=== PATIENT | male | born 1980 | race Two or more races ===

== ENCOUNTER 2023-11-25 12:06 | Inpatient (IN) | payer MEDICARE ==
[2023-11-25 13:46] VITALS: BMI 28.3
[2023-11-25] MEDS ORDERED: ACETAMINOPHEN 325 MG TABLET (FP) PO PRN (15:16)
[2023-11-25] MEDS ORDERED: ONDANSETRON *ODT* 4 MG TABLET SL PRN (15:16)
[2023-11-25] MEDS ORDERED: BENZONATATE 200 MG CAPSULE PO PRN (15:16)
[2023-11-25] MEDS ORDERED: guaiFENesin 600 MG TABLET.ER (FP) PO PRN (15:16)
[2023-11-25] MEDS ORDERED: POLYETHYLENE GLYCOL (HEALTHYLAX) 3350 17 GM PACKET PO PRN (15:16)
[2023-11-25] MEDS ORDERED: IBUPROFEN 400 MG TABLET (FP) PO PRN (15:16)
[2023-11-25] MEDS ORDERED: NICOTINE POLACRILEX 2 MG LOZENGE BC PRN (15:16)
[2023-11-25] MEDS ORDERED: NALOXONE HCL 0.4 MG/ML VIAL IM PRN (15:16)
[2023-11-25] MEDS ORDERED: NICOTINE POLACRILEX 2 MG GUM BUC PRN (15:16)
[2023-11-25] MEDS ORDERED: BENZOCAINE/MENTHOL (CHLORASEPTIC ) LOZENGE MM PRN (15:16)
[2023-11-25] MEDS ORDERED: MAGNESIUM HYDROX 2400MG/30ML ORAL SUSPENSION 30 ML CUP PO PRN (15:16)
[2023-11-25] MEDS ORDERED: NALOXONE HCL (KLOXXADO) 8 MG SPRAY NS PRN (15:16)
[2023-11-25] MEDS ORDERED: methaDONE HCL 10 MG TABLET (FOR DETOX USE ONLY) ONE (16:17)
[2023-11-25] MEDS: methaDONE HCL 10 MG TABLET PO ONE (16:22)
[2023-11-25] MEDS: cloNIDine HCL 0.1 MG TABLET PO SCH (17:51)
[2023-11-25] MEDS: METHOCARBAMOL 500 MG TABLET PO PRN (17:52)
[2023-11-25] MEDS: THIAMINE 100 MG TABLET PO SCH (22:11)
[2023-11-25] MEDS: MELATONIN 5 MG TABLETS PO SCH (22:11)
[2023-11-25] MEDS: methaDONE HCL 10 MG TABLET PO PRN (22:12)
[2023-11-26] MEDS: methaDONE 40 MG, methaDONE 10 MG PO ONE (09:50)
[2023-11-26] MEDS: PRENATAL VITAMINS W/ FOLIC ACID TABLET (FP) PO SCH (09:50)
[2023-11-26] MEDS: hydrOXYzine PAMOATE 25 MG CAPSULE (FP) PO PRN (09:50)
[2023-11-26] MEDS: NICOTINE 21 MG/24 HOURS TOPICAL PATCH TD SCH (09:51)
[2023-11-26 13:42] LABS: HEMATOCRIT 40.3 % (35.4-49); HEMOGLOBIN 13.6 GM/dL (11.7-16.9); MCH 30.6 pg (25.7-33.7); MCHC 33.8 g/dl (32.0-35.9); MEAN CELL VOLUME 90.6 fl (80-96); MEAN PLT VOLUME 9.2 fl (7.5-11.1); PLATELET COUNT 217 10^3/uL (134-434); RBC 4.45 M/mm3 (4.00-5.60); RDW 14.9 % (11.9-15.9); WHITE BLOOD COUNT 6.4 K/mm3 (4.0-10.0)
[2023-11-26 13:44] LABS: CHLORIDE 108 mmol/L (98-107); POTASSIUM 4.2 mmol/L (3.5-5.1); SODIUM 139 mmol/L (136-145)
[2023-11-26 13:47] LABS: CALCIUM 8.5 mg/dL (8.5-10.1)
[2023-11-26 13:48] LABS: ANION GAP 3 mmol/L (4-13); BLOOD UREA NITROGEN 8.5 mg/dL (7-18); CO2 28 mmol/L (21-32); GLUCOSE,RANDOM 103 mg/dL (74-106)
[2023-11-26 13:51] LABS: CREATININE 0.5 mg/dL (0.55-1.3); SGOT/AST 27 U/L (15-37); SGPT/ALT 31 U/L (13-61)
[2023-11-26 13:53] LABS: TOT PROT 6.7 g/dl (6.4-8.2)
[2023-11-26 13:54] LABS: ALK PHOS 97 U/L (45-117)
[2023-11-27] MEDS ORDERED: cloNIDine HCL 0.1 MG TABLET PO PRN
[2023-11-27] MEDS: methaDONE 40 MG, methaDONE 20 MG PO ONE (09:28)
[2023-11-28] MEDS: methaDONE 40 MG, methaDONE 30 MG PO ONE (09:47)
[2023-11-29] MEDS: methaDONE HCL 40 MG DISPERSABLE TABLET PO ONE (09:18)
[2023-11-29] MEDS: IBUPROFEN 600 MG TABLET (FP) PO PRN (15:09)
[2023-11-29] MEDS: MIRTAZAPINE 15 MG TABLET (FP) PO SCH (21:31)
[2023-11-30] MEDS: MAG HYDROX/AL HYDROX/SIMETH 30 ML UNIT-DOSE CUP PO PRN (00:52)
[2023-11-30] MEDS: methaDONE 80 MG, methaDONE 10 MG PO ONE (09:05)
[2023-11-30] MEDS: BISMUTH SUBSALICYLATE 524 MG/30 ML PO PRN (09:07)
[2023-11-30] MEDS: DICYCLOMINE HCL 10 MG CAPSULE PO PRN (19:44)
[2023-12-01] MEDS: LOPERAMIDE HCL 2 MG CAPSULE PO PRN (03:00)
[2023-12-01] MEDS: NICOTINE 21 MG/24 HOURS TOPICAL PATCH TD SCH (06:10)
[2023-12-01] MEDS: methaDONE 80 MG, methaDONE 10 MG PO SCH (06:11)
[2023-12-01 09:29] VITALS: BP 148/75; PULSE 84; RESP 18; TEMP 96.8
== END 2023-12-01 14:16 | disposition other institution (70) | DRG 897 ==
LOC: YASAS 12:06 → Y6N 16:05
PROVIDERS: ADMIT Allergy & Immunology; ATTEND Surgery
PROC: HZ2ZZZZ Detoxification Services for Substance Abuse Treatment (ICD-10-PCS; principal; 2023-11-25)
DX: F11.23 Opioid dependence with withdrawal (principal); F14.20 Cocaine dependence, uncomplicated; F12.20 Cannabis dependence, uncomplicated; F17.213 Nicotine dependence, cigarettes, with withdrawal; F19.24 Other psychoactive substance dependence with psychoactive substance-induced mood disorder; F32.A Depression, unspecified; B18.2 Chronic viral hepatitis C; Z86.59 Personal history of other mental and behavioral disorders
CPT/HCPCS: 36415; 80053; 80305; 80307; 85027; 86780; 87522; 87811; 93005; 93010

== ENCOUNTER 2023-12-01 14:13 | Inpatient (IN) | payer MEDICARE, OTHER ==
[2023-12-01] MEDS ORDERED: NICOTINE POLACRILEX 4 MG GUM BUC PRN (15:36)
[2023-12-01] MEDS ORDERED: guaiFENesin 600 MG TABLET.ER (FP) PO PRN (15:36)
[2023-12-01] MEDS ORDERED: MAGNESIUM HYDROX 2400MG/30ML ORAL SUSPENSION 30 ML CUP PO PRN (15:36)
[2023-12-01] MEDS ORDERED: BENZOCAINE/MENTHOL (CHLORASEPTIC ) LOZENGE MM PRN (15:36)
[2023-12-01] MEDS ORDERED: NALOXONE HCL (KLOXXADO) 8 MG SPRAY NS PRN (15:36)
[2023-12-01] MEDS ORDERED: BENZONATATE 200 MG CAPSULE PO PRN (15:36)
[2023-12-01] MEDS ORDERED: POLYETHYLENE GLYCOL (HEALTHYLAX) 3350 17 GM PACKET PO PRN (15:36)
[2023-12-01] MEDS ORDERED: NALOXONE HCL 0.4 MG/ML VIAL IM PRN (15:36)
[2023-12-01] MEDS: LOPERAMIDE HCL 2 MG CAPSULE PO PRN (16:46)
[2023-12-01] MEDS: THIAMINE 100 MG TABLET PO SCH (22:09)
[2023-12-01] MEDS: MELATONIN 5 MG TABLETS PO SCH (22:09)
[2023-12-01] MEDS: hydrOXYzine PAMOATE 25 MG CAPSULE (FP) PO PRN (22:10)
[2023-12-01] MEDS: MIRTAZAPINE 15 MG TABLET (FP) PO SCH (22:10)
[2023-12-01] MEDS: IBUPROFEN 600 MG TABLET (FP) PO PRN (23:12)
[2023-12-02] MEDS: MAG HYDROX/AL HYDROX/SIMETH 30 ML UNIT-DOSE CUP PO PRN (02:21)
[2023-12-02] MEDS: methaDONE 80 MG, methaDONE 10 MG PO SCH (05:30)
[2023-12-02] MEDS ORDERED: methaDONE HCL 10 MG TABLET PO SCH (06:00)
[2023-12-02] MEDS: PRENATAL VITAMINS W/ FOLIC ACID TABLET (FP) PO SCH (10:14)
[2023-12-02] MEDS: NICOTINE 21 MG/24 HOURS TOPICAL PATCH TD PRN (10:19)
[2023-12-02] MEDS: QUEtiapine FUMARATE 50 MG TABLET PO SCH (21:08)
[2023-12-03] MEDS: methaDONE 80 MG, methaDONE 20 MG PO SCH (05:47)
[2023-12-03] MEDS ORDERED: methaDONE HCL 10 MG TABLET PO SCH (06:00)
[2023-12-03] MEDS: INSULIN ASPART SLIDING SCALE (NOVOLOG) 1 VIAL SQ SCH (16:38)
[2023-12-03] MEDS: BACLOFEN 10 MG TABLET (FP) PO SCH (21:32)
[2023-12-03] MEDS: TOLNAFTATE 1% CREAM 15 GM TUBE TP SCH (21:34)
[2023-12-03] MEDS: ACETAMINOPHEN 325 MG TABLET (FP) PO PRN (22:27)
[2023-12-04] MEDS: PANTOPRAZOLE 20 MG TABLET PO SCH (06:29)
[2023-12-05] MEDS: CHOLECALCIFEROL (VIT D3) 400 UNIT (10 MCG) TABLET PO SCH (12:37)
[2023-12-05] MEDS: IBUPROFEN 400 MG TABLET (FP) PO PRN (13:20)
[2023-12-07] MEDS: GABAPENTIN 100 MG CAPSULE PO SCH (14:43)
[2023-12-10] MEDS ORDERED: methaDONE HCL 10 MG TABLET PO SCH (06:00)
[2023-12-10] MEDS: busPIRone HCL 10 MG TABLET (FP) PO SCH (13:48)
[2023-12-11] MEDS ORDERED: BISMUTH SUBSALICYLATE 524 MG/30 ML PO PRN (16:32)
[2023-12-11] MEDS ORDERED: DICYCLOMINE HCL 10 MG CAPSULE PO PRN (16:32)
[2023-12-11] MEDS ORDERED: guaiFENesin 600 MG TABLET.ER (FP) PO PRN (16:32)
[2023-12-11] MEDS ORDERED: BENZONATATE 200 MG CAPSULE PO PRN (16:32)
[2023-12-11] MEDS ORDERED: ONDANSETRON *ODT* 4 MG TABLET SL PRN (16:32)
[2023-12-12] MEDS: methaDONE 80 MG, methaDONE 10 MG PO ONE (05:53)
[2023-12-12] MEDS ORDERED: methaDONE HCL 10 MG TABLET PO SCH (06:00)
[2023-12-13] MEDS ORDERED: methaDONE HCL 40 MG DISPERSABLE TABLET PO ONE ×2 (06:00)
[2023-12-14] MEDS: methaDONE HCL 40 MG DISPERSABLE TABLET PO SCH (05:48)
[2023-12-15] MEDS ORDERED: methaDONE HCL 40 MG DISPERSABLE TABLET PO ONE (06:00)
[2023-12-15] MEDS: GABAPENTIN 100 MG CAPSULE PO SCH (13:06)
[2023-12-16] MEDS ORDERED: methaDONE HCL 10 MG TABLET PO ONE (06:00)
[2023-12-16] MEDS: methaDONE 40 MG, methaDONE 30 MG PO ONE (06:17)
[2023-12-16] MEDS: LIDOCAINE 4% PATCH TP SCH (17:03)
[2023-12-16] MEDS: LIDOCAINE PATCH REMOVAL MC SCH (21:08)
[2023-12-17] MEDS ORDERED: methaDONE HCL 10 MG TABLET PO ONE (06:00)
[2023-12-17] MEDS: ATOMOXETINE HCL 40 MG CAPSULE PO SCH (10:45)
[2023-12-18] MEDS: methaDONE 40 MG, methaDONE 30 MG PO SCH (05:47)
[2023-12-18] MEDS ORDERED: methaDONE HCL 10 MG TABLET PO SCH (06:00)
[2023-12-18] MEDS ORDERED: methaDONE 40 MG, methaDONE 20 MG PO ONE (06:00)
[2023-12-18] MEDS ORDERED: methaDONE HCL 10 MG TABLET PO ONE (06:00)
[2023-12-19] MEDS ORDERED: methaDONE HCL 10 MG TABLET PO SCH (06:00)
[2023-12-20] MEDS ORDERED: methaDONE 40 MG, methaDONE 10 MG PO SCH (06:00)
[2023-12-20] MEDS ORDERED: methaDONE HCL 10 MG TABLET PO SCH (06:00)
[2023-12-21] MEDS ORDERED: methaDONE HCL 10 MG TABLET PO SCH (06:00)
[2023-12-21] MEDS: traZODone HCL 50 MG TABLET (FP) PO SCH (21:11)
[2023-12-22] MEDS ORDERED: methaDONE HCL 40 MG DISPERSABLE TABLET PO SCH (06:00)
[2023-12-22] MEDS: QUEtiapine FUMARATE 100 MG TABLET (FP) PO SCH (21:25)
[2023-12-24] MEDS: GABAPENTIN 300 MG CAPSULE PO SCH (13:12)
[2023-12-25] MEDS: BACITRACIN 0.9 GM PACKET TP SCH (21:07)
[2023-12-28 06:32] VITALS: TEMP 97.8
[2023-12-28 09:05] VITALS: BP 139/82; PULSE 100; RESP 19
== END 2023-12-28 10:41 | disposition home or self-care (01) | DRG 895 ==
LOC: YASAS 14:13 → Y3NR 14:15 → Y3W 12-02 11:08
PROVIDERS: ADMIT Allergy & Immunology; ATTEND Psychiatry & Neurology Pain Medicine
PROC: HZ42ZZZ Group Counseling for Substance Abuse Treatment, Cognitive-Behavioral (ICD-10-PCS; principal; 2023-12-01)
DX: F11.20 Opioid dependence, uncomplicated (principal); F14.20 Cocaine dependence, uncomplicated; F19.282 Other psychoactive substance dependence with psychoactive substance-induced sleep disorder; Z59.00 Homelessness unspecified; F10.20 Alcohol dependence, uncomplicated; F17.210 Nicotine dependence, cigarettes, uncomplicated; F19.24 Other psychoactive substance dependence with psychoactive substance-induced mood disorder; F41.9 Anxiety disorder, unspecified; F43.10 Post-traumatic stress disorder, unspecified; F90.9 Attention-deficit hyperactivity disorder, unspecified type; K21.9 Gastro-esophageal reflux disease without esophagitis; B35.3 Tinea pedis; R60.0 Localized edema; Z86.19 Personal history of other infectious and parasitic diseases
CPT/HCPCS: 36415; 82306; 82962; 83036; 83735; 87811; J0475

== ENCOUNTER 2023-12-05 08:04 | Emergency (ER) | payer MEDICARE ==
[2023-12-05 08:22] VITALS: BP 126/63; PULSE 57; RESP 18; TEMP 97.7; BMI 25.8
[2023-12-05] MEDS ORDERED: DIPHTH,PERTUSS(ACELL),TET 0.5 ML DISP.SYRIN IM ONE (09:47)
[2023-12-05] MEDS ORDERED: ACETAMINOPHEN 325 MG TABLET (FP) ONE (09:50)
[2023-12-05] MEDS: DIPHTH,PERTUSS(ACELL),TET 0.5 ML DISP.SYRIN IM ONE (09:59)
[2023-12-05] MEDS: ACETAMINOPHEN 325 MG TABLET (FP) PO ONE (09:59)
== END 2023-12-05 11:07 | disposition home or self-care (01) ==
LOC: JER 08:04
PROC: 3E0234Z Introduction of Serum, Toxoid and Vaccine into Muscle, Percutaneous Approach (ICD-10-PCS; principal; 2023-12-05)
DX: S01.81XA Laceration without foreign body of other part of head, initial encounter (principal); W01.198A Fall on same level from slipping, tripping and stumbling with subsequent striking against other object, initial encounter; Z23 Encounter for immunization
CPT/HCPCS: 70450-TC; 73562-TC-LT-FY; 90471; 90715; 93005; 93010; 99285-25